=== PATIENT | female | born 1950 | race Caucasian/White ===

== ENCOUNTER 2024-05-07 12:50 | Emergency (ER) | payer MEDICARE ==
[~2024-05-07] VITALS: Ht 162.6 cm; Wt 59.0 kg
[~2024-05-07 12:50] MED LIST: CYAN10006 IM; FLAS1EAC2 TP; FLAS1KIT2 TP; SYRI-29 MC
[2024-05-07 13:20] VITALS: BP 115/80; O2SAT 99
== END 2024-05-07 13:21 | disposition home or self-care (01) ==
LOC: ER 13:06
DX: R47.81 Slurred speech (principal); E78.00 Pure hypercholesterolemia, unspecified; Z86.73 Personal history of transient ischemic attack (TIA), and cerebral infarction without residual deficits
CPT/HCPCS: A4606; A4663